=== PATIENT | male | born 1980 | race Two or more races ===

== ENCOUNTER 2024-02-21 14:49 | Emergency (ER) | payer OTHER, MEDICAID, SELFPAY ==
[2024-02-21 15:17] VITALS: BP 168/99; PULSE 83; RESP 18; TEMP 36.8; O2SAT 98; BMI 30.2
--- NOTE | 2024-02-21 15:29 | XR_ITS ---
Examination: CT abdomen and pelvis without contrast. Coronal 3-D reconstructions. Sagittal 2-D reconstructions. Date and time of exam:March 02, 2024 1548 hours INDICATIONS: Patient fell today with injury to the abdomen, abdomen pain CTDI: vol (mGy): 7.48 DLP: (mGycm): 491 Technique: Axial images of the abdomen have been obtained, 3 mm slice thickness Intravenous contrast material has not been administered. Low dose protocols were performed. One or more of the following dose reduction techniques were used; automated exposure control, adjustment of the mA and/or KV according to patient size, use of iterative reconstruction technique. Findings: No pneumothorax No focal liver or splenic lesion No renal mass or laceration No perinephric hematoma Abdominal aorta intact, no free blood in the abdomen Minute fat-containing umbilical hernia Normal appendix Negative for pneumoperitoneum Herniation of a portion of the urinary bladder into a right inguinal hernia Fat-containing left inguinal hernia Mild acute fracture L1 vertebral body, minimal depression superior endplate IMPRESSION: No abdominal parenchymal laceration on this noncontrast study Abdominal aorta intact No free blood in the abdomen Mild acute compression fracture L1 vertebral body, minimal depression superior endplate
--- NOTE | 2024-02-21 15:30 | EDNOTE_ITS ---
ED General RME/HPI General Chief complaint: Wound/Laceration Stated complaint: CHIN LAC, BACK PAIN SP FALL Time Seen by Provider: 02/21/24 15:29 Arrival date/time: 02/21/24 14:49 CC: Left low back left lateral upper abdominal pain cut to chin scrape to face HPI approximately 1.5 hours ago the patient tripped on a shovel and fell, landing on the dirt ground. Patient states the fall was broken by his face, but immediately afterwards he experienced left-sided abdomen and chest wall pain. Patient denies shortness of breath difficulty breathing. Patient has a small abrasion to the right cheek and a laceration to the chin that has already closed up patient is awake alert oriented no focal deficits denies any nausea headache blurred visions altered mental status. Related Data Home Medications ?Medication ?Instructions ?Recorded ?Confirmed No Known Home Medications 03/01/21 03/01/21 Allergies Allergy/AdvReac Type Severity Reaction Status Date / Time No Known Allergies Allergy Verified 12/02/22 17:20 Review of Systems Review of Systems Narrative Review of Systems: GEN: No fever, no chills, no weight loss EYES: No discharge, no visual changes, no pain HEENT: No ear pain, no congestion, no sore throat PULM: No shortness of breath, no cough, no congestion CV: No chest pain, no dyspnea on exertion, no palpitations GI: No nausea, no vomiting, no diarrhea, no pain, no constipation : No frequency, no urgency, no dysuria MUSC/SKEL: No joint pain, no back pain SKIN: No rash PSYCH: No hallucinations, no depression HEME/LYMPH: No easy bleeding or bruising tendencies NEURO: No weakness, no headache Past Medical History Past Medical History CARDIAC: Positive Hypertension; Negative Congestive Heart Failure RESPIRATORY: Negative Chronic Obstructive Pulmonary Disease (COPD) GENITOURINARY: Negative Renal Disease ENDOCRINE: Negative Diabetes Mellitus Type 1 or Diabetes Mellitus Type 2 Social History SMOKING STATUS: Never smoker ED Exam Narrative Physical exam: [General: In mild discomfort but not in any acute distress Head normocephalic, no step-offs hematoma induration ulceration or crepitus or depressions. HEENT: Eyes: Pupils are PERRLA EOMs are intact no entrapment, nose no rhinorrhea epistaxis mouth pink moist membranes uvula is midline swallow symmetrical phonation is normal. No facial asymmetry. A small abrasion to the right cheek. No Husain sign raccoon eyes. All other subsystems of HEENT are within acceptable limits Neck is supple nontender no JVD no edema no tenderness to palpation of the cervical spinous processes. Chest equal chest rise nontender to palpation Respiratory: Clear to auscultation no wheezes crackles or rubs CV: Rate rhythm is regular no murmurs rubs or clicks Abdomen tenderness to palpation of the left upper abdomen midaxillary line radiating both anterior and posterior. Back: Left lumbar paraspinal tenderness with palpation no crepitus induration or ulcerations, no thoracic or lumbar spinous processes tenderness with palpation, no right sided tenderness with palpation. Skin: Full-thickness laceration to the chin which is already completely closed and clotted. Small partial-thickness scratch to the right cheek. No ecchymosis, otherwise skin is intact no petechiae rash induration ulceration or crepitus Extremities: Moving all extremity against resistance cap refill less than 2 seconds neurosensory intact Neuro: Awake alert oriented x3 Glascow coma 15 no focal deficits] Course Quality Measures none Orders Category Date Time Status CT abdomen pelvis wo con Stat Exams 02/21/24 15:29 Completed Ketorolac Inj [Toradol Inj] Med 02/21/24 15:29 Discontinued 30 mg IM X1 ONE Tet,Diphth,Pertuss(Acell)-Tdap [Boostrix Vacc] Med 02/21/24 15:30 Discontinued 0.5 ml IMI .ONCE ONE Vital Signs Vital signs: Vital Signs Temperature 98.3 F 02/21/24 15:17 Pulse Rate 83 02/21/24 15:17 Respiratory Rate 18 02/21/24 15:17 Blood Pressure 168/99 H 02/21/24 15:17 Pulse Oximetry (%) 98 02/21/24 15:17 Oxygen Delivery Method Room Air 02/21/24 15:17 [facility] Patient data External records reviewed:: [facility] previous records Clinical information provided by:: patient Social determinants that could affect healthcare access:: none Patient has the following chronic illnesses:: None How is presenting disease/condition affected by chronic disease/condition?: uneffected by Evaluation data The following diagnostics were reviewed and interpreted by me:: radiology exam(s) Lab and/or radiology exams considered but not ordered:: CT abdomen pelvis shows the patient has an acute L1 compression fracture. Interpretation Summary: Patient has no other acute findings and no neurodeficit at this time the patient's pain is commensurate with the clinical findings. Patient be discharged home outpatient TLSO brace will be authorized and sent to them. Patient encouraged to take ibuprofen Tylenol follow-up with his primary care provider if his worsening symptoms he can return the emergency room for reevaluation. Medications Medications considered but not ordered:: None Medication administrations:: Medication Administration History Discontinued Medications Diphtheria/Tetanus/Acell Pertussis (Diphth,Pertuss(Acell),Tet Vac 0.5 Ml Vial) 0.5 ml IMi .ONCE ONE Stop: 02/21/24 15:31 Last Admin: 02/21/24 16:09 Dose: 0.5 ml Documented By: Ketorolac Tromethamine (Ketorolac Inj 60 Mg/2 Ml Vial) 30 mg IM X1 ONE Stop: 02/21/24 15:30 Last Admin: 02/21/24 16:08 Dose: 30 mg Documented By: None Consultations Consultation(s) initiated? (list below): No Diagnosis Differential Diagnosis ED Complaint MDM: Rib fracture lumbar compression fracture abdominal contusion Most likely diagnosis given after review of the tests above:: L1 compression fracture Admission Indicated Admission indicated?: not indicated Explain why admission is indicated or not indicated:: Stable for outpatient follow-up Admission Request Was there a request for admission?: No Disposition Plan Disposition Plan: Discharge Discharge Attestation Discharge Attestation: The patient and all family members were given an opportunity to ask questions and understood the discharge instructions. Discharge instructions specifically effects, indications for sooner follow up or return to the emergency department, and the expected course of current diagnosis. 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
[2024-02-21] MEDS: KETOROLAC INJ 60 MG/2 ML VIAL 30 MG IM (16:08)
[2024-02-21] MEDS: DIPHTH,PERTUSS(ACELL),TET VAC 0.5 ML VIAL IMi (16:09)
--- NOTE | 2024-02-21 17:29 | PC.CC ---
ASW engaged to send referral for TLSO brace. ASW met with pt at bedside to confirm demographic information. Pt and his informed that referral will be faxed to [facility]. ASW informed pt that once order is received [facility] will contact pt to schedule an appointment to be fitted for brace. Referral sent at this time.
== END 2024-02-21 18:01 | disposition home or self-care (01) ==
PROVIDERS: Emergency Provider Emergency Medicine; PCP Nurse Practitioner Family
DX: S32.019A Unspecified fracture of first lumbar vertebra, initial encounter for closed fracture (principal); S01.81XA Laceration without foreign body of other part of head, initial encounter; W01.0XXA Fall on same level from slipping, tripping and stumbling without subsequent striking against object, initial encounter; Z23 Encounter for immunization
CPT/HCPCS: 74176; 90471; 90715; 96372; 99284; J1885

== ENCOUNTER → 2024-02-22 | Outpatient (BNVA) | payer OTHER, MEDICAID, SELFPAY | END | disposition home or self-care (01) | PROVIDERS: PCP Nurse Practitioner Family; Referring Provider Nurse Practitioner Family; Visit Provider Nurse Practitioner Family | DX: Z23 Encounter for immunization (principal); F10.90 Alcohol use, unspecified, uncomplicated; M48.56XA Collapsed vertebra, not elsewhere classified, lumbar region, initial encounter for fracture; I10 Essential (primary) hypertension; Z13.220 Encounter for screening for lipoid disorders | CPT/HCPCS: 90471; 90686; 99214 ==

== ENCOUNTER → 2024-02-23 | Outpatient (CLI) | payer OTHER, MEDICAID, SELFPAY ==
--- NOTE | 2024-02-23 10:06 | XR_ITS ---
Examination: Lumbar spine 3 views TECHNIQUE: AP lateral coned lateral lower lumbar spine 3 views Exam date and time: February 23, 2024 1026 hours INDICATIONS: Patient fell 3 days ago with injury to the lower back, lower back pain. FINDINGS: No acute lumbar fracture Mild lumbar spondylosis No spondylolisthesis Early degenerative disc disease L2-L3 IMPRESSION: No lumbar fracture
== END | disposition home or self-care (01) ==
PROVIDERS: PCP Nurse Practitioner Family; Referring Provider Nurse Practitioner Family; Visit Provider Nurse Practitioner Family
DX: S39.92XA Unspecified injury of lower back, initial encounter (principal); W19.XXXA Unspecified fall, initial encounter
CPT/HCPCS: 72100

== ENCOUNTER → 2024-03-02 | Outpatient (BNVA) | payer OTHER, MEDICAID, SELFPAY | END | disposition home or self-care (01) | PROVIDERS: PCP Nurse Practitioner Family; Referring Provider Nurse Practitioner Family; Visit Provider Nurse Practitioner Family | DX: Z00.01 Encounter for general adult medical examination with abnormal findings (principal); I10 Essential (primary) hypertension; Z13.220 Encounter for screening for lipoid disorders; Z11.3 Encounter for screening for infections with a predominantly sexual mode of transmission; Z13.1 Encounter for screening for diabetes mellitus; F10.90 Alcohol use, unspecified, uncomplicated; M54.50 Low back pain, unspecified | CPT/HCPCS: 99215 ==

== ENCOUNTER → 2024-03-16 | Outpatient (BNVA) | payer OTHER, MEDICAID, SELFPAY | END | disposition home or self-care (01) | PROVIDERS: PCP Nurse Practitioner Family; Referring Provider Nurse Practitioner Family; Visit Provider Nurse Practitioner Family | DX: Z71.2 Person consulting for explanation of examination or test findings (principal); E55.9 Vitamin D deficiency, unspecified; I10 Essential (primary) hypertension; E78.5 Hyperlipidemia, unspecified; R73.03 Prediabetes | CPT/HCPCS: 99213 ==

== ENCOUNTER → 2024-03-30 | Outpatient (BNVA) | payer OTHER, MEDICAID, SELFPAY | END | disposition home or self-care (01) | PROVIDERS: PCP Nurse Practitioner Family; Referring Provider Nurse Practitioner Family; Visit Provider Nurse Practitioner Family | DX: I10 Essential (primary) hypertension (principal) | CPT/HCPCS: 99213 ==

== ENCOUNTER → 2024-05-09 | Outpatient (BNVA) | payer OTHER, MEDICAID, SELFPAY | END | disposition home or self-care (01) | PROVIDERS: PCP Nurse Practitioner Family; Referring Provider Nurse Practitioner Family; Visit Provider Nurse Practitioner Family | DX: I10 Essential (primary) hypertension (principal) | CPT/HCPCS: 99213 ==

== ENCOUNTER → 2024-05-23 | Outpatient (BNVA) | payer OTHER, MEDICAID, SELFPAY | END | disposition home or self-care (01) | PROVIDERS: PCP Nurse Practitioner Family; Referring Provider Nurse Practitioner Family; Visit Provider Nurse Practitioner Family | DX: I10 Essential (primary) hypertension (principal) | CPT/HCPCS: 99213 ==

== ENCOUNTER → 2024-06-26 | Outpatient (BNVA) | payer OTHER, MEDICAID, SELFPAY | END | disposition home or self-care (01) | PROVIDERS: PCP Nurse Practitioner Family; Referring Provider Nurse Practitioner Family; Visit Provider Nurse Practitioner Family | DX: I10 Essential (primary) hypertension (principal); E78.5 Hyperlipidemia, unspecified; E55.9 Vitamin D deficiency, unspecified; Z71.2 Person consulting for explanation of examination or test findings | CPT/HCPCS: 99213 ==

== ENCOUNTER → 2024-07-13 | Outpatient (BNVA) | payer OTHER, MEDICAID, SELFPAY | END | disposition home or self-care (01) | PROVIDERS: PCP Nurse Practitioner Family; Referring Provider Nurse Practitioner Family; Visit Provider Nurse Practitioner Family | DX: I10 Essential (primary) hypertension (principal) | CPT/HCPCS: 99213 ==

== ENCOUNTER 2024-10-09 15:29 | Emergency (ER) | payer OTHER, MEDICAID, SELFPAY ==
[2024-10-09 15:37] VITALS: BP 203/110; PULSE 79; RESP 20; O2SAT 95
--- NOTE | 2024-10-09 15:48 | EKG_ITS ---
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1980 Requested By: Cassandra Pina Order Number: [id number] Reading MD: Cassandra Pina Measurements Intervals [place] Rate: 66 P: 26 VT: 195 QRS: -30 QRSD: 106 T: 72 QT: 390 QTc: 412 Interpretive Statements SINUS RHYTHM POSSIBLE LEFT ATRIAL ENLARGEMENT [-0.1mV P-WAVE IN V1/V2] BORDERLINE LEFT AXIS DEVIATION [QRS AXIS < -20] S1-S2-S3 PATTERN, CONSISTENT WITH PULMONARY DISEASE, RVH, OR NORMAL VARIANT INCOMPLETE RIGHT BUNDLE BRANCH BLOCK [90+ ms QRS DURATION, TERMINAL R IN V1/V2, 40+ ms S IN I/aVL/V4/V5/V6] EARLY REPOLARIZATION [ST ELEVATION WITH NORMALLY INFLECTED T-WAVE] No previous ECG available for comparison /store/S0/[id number]/[id number].pdf
--- NOTE | 2024-10-09 15:48 | XR_ITS ---
Examination: CT brain head without contrast. 2-D sagittal coronal reconstructions Date and time of exam:October 09, 2024, 1614 hours INDICATIONS: Hypertensive emergency with headache blurred vision today. CTDI: vol (mGy):53.2 DLP: (mGycm):1069 Technique: Multiple CT axial sections of the brain have been obtained, 5 mm slice thickness. Contrast has not been administered. 2-D sagittal, coronal reconstructions have been obtained Low dose protocols were performed. One or more of the following dose reduction techniques were used; automated exposure control, adjustment of the mA and/or KV according to patient size, use of iterative reconstruction technique. Findings: No significant ventricular enlargement. Intra-axial or extra-axial hemorrhage density is not seen. No mass effect or midline shift Basal cisterns are not remarkable. Fourth ventricle is midline. Cranial vault intact. Impression: Negative for acute hemorrhage, mass effect or midline shift
--- NOTE | 2024-10-09 15:48 | XR_ITS ---
Examination: PA chest single view TECHNIQUE: Upright PA chest single view. Date and time: October 09, 2024, 1552 hours COMPARISON: December 02, 2022 INDICATIONS: Chest pain and dizziness blurred vision beginning today. FINDINGS: Minor prominence left ventricle. Ectatic thoracic aorta. No pneumonia or pulmonary edema. IMPRESSION: No active disease.
--- NOTE | 2024-10-09 16:06 | PD.EDDIZZY ---
ED Dizzyness RME/HPI General Chief Complaint: Dizziness Stated Complaint: DIZZY, BLURRED VISION, CHEST PAIN;LKW 3530? 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 Accompanied by a mild dull headache and diaphoresis. Denies any unilateral weakness, difficulty walking, changes in speech, or loss of sensation/movement. Patient states he is compliant with medications and took his Losartan at 9 AM today. Denies fevers, chills, chest pain, cough, shortness of breath, abdominal pain, n/v/d, or urinary symptoms. Related Data Previous Rx's ?Medication ?Instructions ?Recorded amlodipine 10 mg tablet 10 mg PO QDAY #90 tabs 05/23/24 hydrochlorothiazide 25 mg tablet 25 mg PO QAM #90 tabs 05/23/24 losartan 50 mg tablet 50 mg PO QDAY #90 tabs 05/23/24 cholecalciferol (vitamin D3) 25 25 mcg PO QDAY 3 months #90 caps 06/26/24 mcg (1,000 unit) capsule clonidine HCl 0.1 mg tablet 0.1 mg PO BID #10 tabs 10/10/24 Allergies Allergy/AdvReac Type Severity Reaction Status Date / Time No Known Allergies Allergy Verified 10/09/24 15:33 Review of Systems Review of Systems Systems Reviewed: All systems reviewed, normal except as documented Past Medical History Past Medical History CARDIAC: Positive Hypertension; Negative Congestive Heart Failure RESPIRATORY: Negative Chronic Obstructive Pulmonary Disease (COPD) GENITOURINARY: Negative Renal Disease ENDOCRINE: Negative Diabetes Mellitus Type 1 or Diabetes Mellitus Type 2 Social History SMOKING STATUS: Never smoker SECOND HAND EXPOSURE: No ED Exam General Limitations: Present no limitations General appearance: Present alert, in no apparent distress and other (diaphoretic ) Head Head exam: Present atraumatic Eye Eye exam: Present normal appearance, PERRL and EOMI ENT ENT exam: Present normal exam, normal oropharynx and mucous membranes moist Neck Neck exam: Present normal inspection, full ROM and trachea midline Chest Chest inspection: Present normal inspection and symmetric chest wall rise Respiratory Respiratory exam: Present normal lung sounds bilaterally Cardiovascular Cardiovascular exam: Present regular rate, normal rhythm and normal heart sounds Abdominal Exam Abdominal exam: Present soft and normal bowel sounds Extremities Exam Extremities exam: Present normal inspection and full ROM Back Exam Back exam: Present normal inspection and full ROM Neurological Exam Neurological exam: Present alert, oriented X3 and CN II-XII intact; Absent motor sensory deficit Psychiatric Psychiatric exam: Present normal affect and normal mood Skin Skin exam: Present warm, intact, normal color and diaphoresis Course Quality Measures none Orders Category Date Time Status EKG (ED ONLY) *Do not use* NOW Care 10/09/24 15:[address] head/brain wo con Stat Exams 10/09/24 15:48 Completed CXR [XR chest 1V] Stat Exams 10/09/24 15:48 Completed EKG (ED Only) Stat Exams 10/09/24 15:48 Draft CBC Stat Lab 10/09/24 17:11 Completed CMP [Comprehensive Metabolic Panel] Stat Lab 10/09/24 17:11 Completed Drug Screen,Urine Stat Lab 10/09/24 18:00 Completed PT [Prothrombin Time with INR] Stat Lab 10/09/24 17:11 Completed Troponin I Stat Lab 10/09/24 17:11 Completed UA, C/S IF [Urinalysis, C/S if Indicated] Stat Lab 10/09/24 18:00 Completed Labetalol IV [Trandate IV] Med 10/09/24 15:49 Discontinued 10 mg IVP X1 ONE Vital Signs Vital signs: Vital Signs Pulse Rate 79 10/09/24 15:37 Respiratory Rate 20 10/09/24 15:37 Blood Pressure 203/110 H 10/09/24 15:37 Pulse Oximetry (%) 95 10/09/24 15:37 Oxygen Delivery Method Room Air 10/09/24 15:37 Pulse ox is 95% on room air which is adequate. Dizziness MDM Narrative MDM Narrative:: ILaquita am scribing for and in the presence of Dr. Burrows. 1604h: On reassessment, patient reports feeling better and blurry vision has improved. 1800h: Patient signed out to Dr. Dupree pending labs and final disposition. Patient data External records reviewed:: [facility] previous records (I reviewed ED visit on 02/21/2024 ) Clinical information provided by:: patient Social determinants that could affect healthcare access:: none Patient has the following chronic illnesses:: HTN How is presenting disease/condition affected by chronic disease/condition?: exacerbated by Evaluation data The following diagnostics were reviewed and interpreted by me:: lab results, radiology exam(s) and EKG tracing(s) Lab and/or radiology exams considered but not ordered:: None Interpretation Summary: Ordering Physician: Cassandra Burrows MD Date of Service: 10/09/24 Procedure(s): XR chest 1V Accession Number(s): [id number] cc: Vick Hu MD; Cassandra Burrows MD~ Examination: PA chest single view TECHNIQUE: Upright PA chest single view. Date and time: October 09, 2024, 1552 hours COMPARISON: December 02, 2022 INDICATIONS: Chest pain and dizziness blurred vision beginning today. FINDINGS: Minor prominence left ventricle. Ectatic thoracic aorta. No pneumonia or pulmonary edema. IMPRESSION: No active disease. Dictated By: Vick Hu MD Signed By: <Electronically signed by Vick Hu MD in OV> 10/09/24 1604 Ordering Physician: Cassandra Burrows MD Date of Service: 10/09/24 Procedure(s): CT head/brain wo con Accession Number(s): [id number] cc: Vick Hu MD; Cassandra Burrows MD~ Examination: CT brain head without contrast. 2-D sagittal coronal reconstructions Date and time of exam:October 09, 2024, 1614 hours INDICATIONS: Hypertensive emergency with headache blurred vision today. CTDI: vol (mGy):53.2 DLP: (mGycm):1069 Technique: Multiple CT axial sections of the brain have been obtained, 5 mm slice thickness. Contrast has not been administered. 2-D sagittal, coronal reconstructions have been obtained Low dose protocols were performed. One or more of the following dose reduction techniques were used; automated exposure control, adjustment of the mA and/or KV according to patient size, use of iterative reconstruction technique. Findings: No significant ventricular enlargement. Intra-axial or extra-axial hemorrhage density is not seen. No mass effect or midline shift Basal cisterns are not remarkable. Fourth ventricle is midline. Cranial vault intact. Impression: Negative for acute hemorrhage, mass effect or midline shift Dictated By: Vick Hu MD Signed By: <Electronically signed by Vick Hu MD in OV> 10/09/24 1656 Medications / Prescriptions Medications or Prescriptions considered but not ordered:: None Medication administrations:: Medication Administration History Discontinued Medications Labetalol HCl (Labetalol Inj 5 Mg/Ml Vial 20 Ml) 10 mg IVP X1 ONE Stop: 10/09/24 15:50 Last Admin: 10/09/24 17:25 Dose: 10 mg Documented By: ARF See above Consultations Consultation(s) initiated? (list below): No Diagnosis Dizziness Differential Diagnosis: benign paroxysmal positional vertigo, orthostatic hypotension, cerebrovascular accident and transient cerebral ischemia Most likely diagnosis given after review of the tests above:: weakness, however is pending final assessment Admission Indicated Admission indicated?: not indicated Explain why admission is indicated or not indicated:: Signed out pending final disposition Admission Request Was there a request for admission?: No Disposition Plan Disposition Plan: other (specify) (signed out to Dr. Dupree ) Discharge Plan Plan Patient Disposition: HOME (Self Care) Discharge Disposition comment: Stable Prescriptions/Referrals Prescriptions/Med Rec: No Action amlodipine 10 mg tablet 10 mg PO QDAY Qty: 90 0RF losartan 50 mg tablet 50 mg PO QDAY Qty: 90 0RF hydrochlorothiazide 25 mg tablet 25 mg PO QAM Qty: 90 0RF cholecalciferol (vitamin D3) 25 mcg (1,000 unit) capsule 25 mcg PO QDAY 90 Days Qty: 90 1RF clonidine HCl 0.1 mg tablet 0.1 mg PO BID Qty: 10 0RF Referrals: No Primary/Family,Physician [Primary Care Provider] - In 1 week Problem List Clinical Impression: Accelerated hypertension Impression comment: Acc HTN Patient/Caregiver Discharge Instructions Discharge Activity: activity as tolerated Education Materials: Controlling High Blood Pressure Additional Instructions: Reinstitute losartin upon arrival home this evening and continue HCTZ in am // BP Checks twice daily and increase losartin to 1 tab twice daily if systolic BP greater than 160/95 Print Language: [place] Islander Stand Alone Forms: Keisha Award Info., Patient Portal Info Letter
[2024-10-09 16:44] VITALS: BP 176/100
[2024-10-09 17:25] VITALS: BP 173/110; PULSE 66
[2024-10-09] MEDS: LABETALOL INJ 5 MG/ML VIAL 20 ML 10 MG IVP (17:25)
[2024-10-09 17:45] LABS: Basophils # (Auto) 0.0 Thou/mm3 (0.0-0.2); Basophils % (Auto) 1 % (0-2.5); Eosinophils # (Auto) 0.1 Thou/mm3 (0.0-0.5); Eosinophils % (Auto) 1 % (0-10); Hematocrit 35.7 % (41.0-53.0); Hemoglobin 12.3 g/dL (13.5-16.0); Immature Granulocytes Auto 0.04 Thou/mm3 (0.00-0.00); Lymphocytes # (Auto) 1.4 Thou/mm3 (1.0-4.8); Lymphocytes % (Auto) 25 % (10-50); Mean Corpuscular HGB Conc 34.5 g/dl (31.0-37.0); Mean Corpuscular Hemoglobin 30.2 pg (25.0-35.0); Mean Corpuscular Volume 88 fL (80-100); Monocytes # (Auto) 0.5 Thou/mm3 (0.0-0.8); Monocytes % (Auto) 8 % (0-12); Neutrophils # (Auto) 3.7 Thou/mm3 (1.8-7.7); Neutrophils % (Auto) 64 % (37-80); Nucleated Red Blood Cell # 0.00 Thou/mm3 (0.00-0.00); Nucleated Red Blood Cell % 0 /100 WBC (0); Platelet Count 322 Thou/mm3 (140-440); RDW Standard Deviation 38.5 fL (35.1-43.9); Red Blood Count 4.07 Miln/mm3 (4.50-5.90); White Blood Count 5.7 Thou/mm3 (3.8-10.6)
[2024-10-09 17:56] LABS: INR 0.9 (0.9-1.3); Prothrombin Time 10.3 Seconds (9.0-12.2)
[2024-10-09 17:58] VITALS: BP 154/99; PULSE 69; RESP 20; TEMP 36.7; O2SAT 95
[2024-10-09 18:04] LABS: Alanine Aminotransferase 15 U/L (10-49); Albumin, Serum 4.3 gm/dL (3.5-5.0); Albumin/Globulin Ratio 1.7 (1.2-2.2); Alkaline Phosphatase 78 U/L (46-116); Anion Gap 10 (7-16); Aspartate Amino Transferase 11 U/L (0-34); BUN/Creatinine Ratio 13 Ratio (12-20); Bilirubin,Total 0.2 mg/dL (0.3-1.2); Blood Urea Nitrogen 12 mg/dL (9-23); Calcium 9.8 mg/dL (8.3-10.6); Calcium (Corrected) 9.8 mg/dL (8.5-10.1); Carbon Dioxide 26.9 mMol/L (20.0-31.0); Chloride 100 mMol/L (98-107); Creatinine (Component) 0.9 mg/dL (0.6-1.3); Globulin 2.6 gm/dL (2.3-3.5); Glucose 99 mg/dL (74-106); Osmolality,Calculated 273 (275-295); Potassium 4.2 mMol/L (3.4-5.1); Sodium 137 mMol/L (136-145); Total Protein 6.9 gm/dL (5.7-8.2); Troponin I < 0.002 ng/mL (0.0-0.045); eGFR > 60 See Note
[2024-10-09 18:14] LABS: Collection Type, Urine Clean Catch; Squamous Epithelial Cell,Urine 0 /hpf (0-5)
[2024-10-09 18:22] LABS: Bilirubin,Urine Negative (Negative); Blood,Urine Negative (Negative); Clarity,Urine Clear (Clear/Hazy); Color,Urine Colorless (Lt Yel-Yel); Culture Indicated,Urine Not Indicated; Glucose, Urine Negative (Negative); Ketones,Urine Negative (Negative); Leukocyte Esterase,Urine Negative (Negative); Nitrite,Urine Negative (Negative); PH,Urine 6.5 (5.0-7.0); Protein,Urine Negative (Neg - Trace); RBC,Urine < 1 /hpf (0-3); Specific Gravity,Urine 1.014 (1.001-1.035); Urobilinogen,Urine Negative mg/dL (0.0-1.0); WBC,Urine 1 /hpf (0-5)
--- NOTE | 2024-10-09 18:38 | EDNOTE_ITS ---
Emergency Room Addendum Addendum Narrative: 1800: Care assumed from Dr. Burrows, the previous shift emergency physician. Past medical, surgical, social and family history reviewed. Vitals and home medications reviewed. Results and treatment plan discussed. I will assume the care of the patient at this time and will follow the patient. Please refer to the emergency department record for history and examination from initial visit. 44yo male with a history of HTN (off of meds due to intolerance when combined w ith recently prescribed narcotic analgesics), s/p recent hernia surgery here with a pulsatile headache, visual disturbance, and noted to be markedly hypertensive. Patient given antihypertensive therapy and had a gradual reduction of blood pressure to acceptable levels. Patient returned to normal neurological status. On0 serial re-evaluation, headache is resolved with blood pressure now being 159 systolic and without signs of end organ injury. Will discharge home and re-institute Losartan this evening, followed-up by HCTZ in the morning. Patient instructed to monitor blood pressure twice daily at home and to take additional dose if systolic blood pressure is > 160 or diastolic > 95. Dx: accelerated hypertension
[2024-10-09 18:55] VITALS: BP 151/97; PULSE 61; RESP 20; TEMP 36.7; O2SAT 97
[2024-10-09 19:48] LABS: Amphetamine/Methamp Scrn,U Negative (Negative); Barbiturate Screen,Urine Negative (Negative); Benzodiazepines Screen,Urine Negative (Negative); Benzoylecgonine Screen, Ur Negative (Negative); Fentanyl Screen,Urine Negative (Negative); Opiate Screen,Urine Negative (Negative); THC Screen,Urine Negative (Negative)
== END 2024-10-09 19:02 | disposition home or self-care (01) ==
PROVIDERS: Emergency Medicine; Emergency Provider Emergency Medicine
DX: I10 Essential (primary) hypertension (principal)
CPT/HCPCS: 36415; 70450; 71045; 80053; 80307; 81001; 84484; 85025; 85610; 93005; 96374; 99284; J3490; J1920

== ENCOUNTER 2024-10-09 22:42 | Emergency (ER) | payer OTHER, MEDICAID, SELFPAY ==
--- NOTE | 2024-10-09 23:21 | PD.EDADULT ---
ED General RME/HPI General Chief complaint: General Adult/Misc Complain Stated complaint: HIGH BP Time Seen by Provider: 10/09/24 23:32 Arrival date/time: 10/09/24 22:42 RME / HPI RME / HPI narrative: Dr. Silveira?s Main ED Evaluation: 44yo male who was recently discharged after having assumed care and presenting with accelerated hypertension now presenting with recurrent headache and spike in blood pressure >190/110 after returning home. No nausea or vomiting. No lateral motor or sensory disturbance. Related Data Previous Rx's ?Medication ?Instructions ?Recorded amlodipine 10 mg tablet 10 mg PO QDAY #90 tabs 05/23/24 hydrochlorothiazide 25 mg tablet 25 mg PO QAM #90 tabs 05/23/24 losartan 50 mg tablet 50 mg PO QDAY #90 tabs 05/23/24 cholecalciferol (vitamin D3) 25 25 mcg PO QDAY 3 months #90 caps 06/26/24 mcg (1,000 unit) capsule clonidine HCl 0.1 mg tablet 0.1 mg PO BID #10 tabs 10/10/24 Allergies Allergy/AdvReac Type Severity Reaction Status Date / Time No Known Allergies Allergy Verified 10/09/24 15:33 Review of Systems Review of Systems Systems Reviewed: All systems reviewed, normal except as documented Past Medical History Past Medical History CARDIAC: Positive Hypertension; Negative Congestive Heart Failure RESPIRATORY: Negative Chronic Obstructive Pulmonary Disease (COPD) GENITOURINARY: Negative Renal Disease ENDOCRINE: Negative Diabetes Mellitus Type 1 or Diabetes Mellitus Type 2 Social History SMOKING STATUS: Never smoker SECOND HAND EXPOSURE: No ED Exam Narrative Physical exam: GENERAL APPEARANCE: alert and oriented x 4, well-developed, well-nourished, modestly hypertensive, no acute distress VITALS: All vitals were reviewed and the pulse ox is % on room air, which is normal according to my interpretation. HEENT: Normocephalic, atraumatic; pupils equal, round, reactive to light; EOMI; mucous membranes pink, moist; oropharynx clear NECK: Supple LUNGS: CTABL; no wheezes, no rales, no rhonchi HEART: Regular rate, regular rhythm; normal S1, S2; no murmurs ABDOMEN: non distended; normal BS; soft, no tenderness BACK: no CVA tenderness EXTREMITIES: atraumatic; no edema NEUROLOGIC: awake; alert and oriented x4; cranial nerves II-XII grossly intact; no focal sensory or motor deficits PSYCHIATRIC: appropriate mood and affect SKIN: warm, dry, normal color; no rashes Course Quality Measures none Orders Category Date Time Status Troponin I Stat Lab 10/09/24 22:36 Completed Midazolam Inj [Versed Inj] Med 10/09/24 23:19 Discontinued 2 mg IVP X1 ONE Sodium Chloride 0.9% 500 ml [Ns] 500 ml Med 10/09/24 23:20 Discontinued IV 500 mls/hr fentaNYL INJ [Sublimaze Inj] Med 10/09/24 23:19 Discontinued 50 mcg IVP X1 ONE hydrALAZINE INJ [Apresoline Inj] Med 10/09/24 23:19 Discontinued 10 mg IVP X1 ONE Vital Signs Vital signs: Vital Signs Temperature 98.1 F 10/09/24 23:36 Pulse Rate 72 10/09/24 23:36 Respiratory Rate 17 10/09/24 23:36 Blood Pressure 185/106 H 10/09/24 23:36 Pulse Oximetry (%) 96 10/09/24 23:36 Oxygen Delivery Method Room Air 10/09/24 23:36 Discharge Plan Plan Patient Disposition: HOME (Self Care) Prescriptions/Referrals Prescriptions/Med Rec: New clonidine HCl 0.1 mg tablet 0.1 mg PO BID Qty: 10 0RF No Action amlodipine 10 mg tablet 10 mg PO QDAY Qty: 90 0RF losartan 50 mg tablet 50 mg PO QDAY Qty: 90 0RF hydrochlorothiazide 25 mg tablet 25 mg PO QAM Qty: 90 0RF cholecalciferol (vitamin D3) 25 mcg (1,000 unit) capsule 25 mcg PO QDAY 90 Days Qty: 90 1RF Referrals: [facility]IAISON,Citlaly Gurrola NP [Primary Care Provider] - In 1 week Problem List Clinical Impression: Accelerated hypertension Patient/Caregiver Discharge Instructions Discharge Activity: activity as tolerated Diet Instructions: Low-salt/fat diet Education Materials: Blood Pressure Check Steps, ED High Blood Pressure ... Additional Instructions: Continue HCTZ every morning and losartan approximately 6 PM. Will prescribe clonidine as needed for systolic greater than or equal to 170 or diastolic greater than or equal to 100 Print Language: Scottish Stand Alone Forms: Keisha Award Info., Patient Portal Info Letter MDM Narrative MDM hospital course: Scribe Attestation: 10/09/24 - I, Tarsha Chavez am scribing for and in the presence of Dr. Silveira. 44yo male who was recently discharged after having assumed care and presenting with accelerated hypertension now presenting with recurrent headache and spike in blood pressure >190/110 after returning home. No nausea or vomiting. Please see PE findings. Lab markers deferred. Patient placed on iron bender and observed for several hours with gradual reduction of blood pressure to acceptable limits - likely due to Losartan taken at ~9pm. Patient is resting comfortably and is stable for discharge. Will recommend continued HCTZ/Losartan therapy. Will consider clonidine PRN for spikes in blood pressure. Recommend follow-up with PMD. Precaution instructions issued. Clinical Information Provided by patient Medical Records Reviewed [facility] (Per chart review, patient was seen here earlier today for accelerated hypertension.) and EMS Meds/Rx Considered, not Ordered None Labs/Rad/Tests considered, not Ordered None Chronic Illness/Social Conditions Add or document further as needed: Hx HTN EKG EKG not done Lab Interpretation Labs: none Imaging Imaging interpretation: none Medication Administration(s) Medication Administration History Discontinued Medications Fentanyl Citrate (Fentanyl Cit Inj 50 Mcg/Ml Amp 2ml) 50 mcg IVP X1 ONE Stop: 10/09/24 23:20 Hydralazine HCl (Hydralazine Inj 20 Mg/Ml Vial) 10 mg IVP X1 ONE Stop: 10/09/24 23:20 Sodium Chloride (Ns) 500 mls @ 500 mls/hr IV .Q1H ONE Stop: 10/10/24 00:19 Midazolam HCl (Midazolam Inj 1 Mg/Ml Vial 2 Ml) 2 mg IVP X1 ONE Stop: 10/09/24 23:20 none Diagnosis Differential diagnosis: uncontrolled hypertension, accelerated hypertension, hypertensive urgency Most likely dx, and/or detailed dx discussion: see clinical impression below Dispositon Disposition: Discharge Home
[2024-10-09 23:36] VITALS: BP 185/106; PULSE 72; RESP 17; TEMP 36.7; O2SAT 96
[2024-10-10 00:02] LABS: Troponin I < 0.020 ng/mL (0.0-0.045)
[2024-10-10 00:15] VITALS: BP 136/85; PULSE 69; RESP 20; O2SAT 98
[2024-10-10 00:30] VITALS: BP 131/82; PULSE 63; RESP 18; O2SAT 98
[2024-10-10 00:45] VITALS: BP 144/84; PULSE 70; RESP 22; O2SAT 98
[2024-10-10 01:00] VITALS: BP 143/87; PULSE 68; RESP 13; O2SAT 98
[2024-10-10 01:13] VITALS: BP 134/91; PULSE 63; RESP 18; O2SAT 98
== END 2024-10-10 02:06 | disposition home or self-care (01) ==
PROVIDERS: Emergency Provider Emergency Medicine; PCP Nurse Practitioner Family
DX: I10 Essential (primary) hypertension (principal)
CPT/HCPCS: 36415; 80053; 83735; 84484; 85025; 99282